=== PATIENT | male | born 1975 | race Caucasian/White ===

== ENCOUNTER 2019-10-23 10:52 | Day surgery (SDC) | payer BC ==
[~2019-10-23] VITALS: Ht 175.3 cm; Wt 113.4 kg
[2019-10-23] MEDS ORDERED: NEXIUM40 MG PO (11:12)
[2019-10-23] MEDS ORDERED: FLONASE ALLERG9.9 ML NAS (11:13)
--- NOTE | 2019-10-23 12:56 | NUR ---
10/23/19 1256 Sheets,Katharine 1249 PT ARRIVED TO PACU ON 3L VIA MASK, RESP EVEN AND UNLABORED. PLAN OF CARE DISCUSSED AND PT DENIES NAUSEA AND PAIN. PT FALLS EASILY BACK TO SLEEP. 1250 O2 TURNED OFF. 1254 PT ASLEEP AND O2 SAT DECREASED TO 88%, PT WAKES EASILY AND IS ENCOURAGED TO DEEP BREATHE, 02 2L NC TURNED ON. O2 AT INCREASED TO MID 90S.
--- NOTE | 2019-10-24 11:23 | OR ---
[facility] [address], [place] [address] Signed DATE OF OPERATION: 10/23/2019 SURGEON: Lisa Linder MD PREOPERATIVE DIAGNOSES: 1. Clinical gastroesophageal reflux symptoms. 2. History of laparoscopic Sherlyn fundoplication in 2003 (Dr. Albright) [place], [place]. POSTOPERATIVE DIAGNOSES: Slipped Sherlyn and chronic distal esophagitis. PROCEDURE: Esophagogastroduodenoscopy with biopsy. ANESTHESIA: Intravenous sedation, fentanyl 100 mcg and Versed 4 mg. INDICATION: This 44-year-old white man is a patient of Dr. Santino Downs. He underwent laparoscopic Sherlyn fundoplication in [place], [place] in [address] Adrian Albright, whom I know well. The patient did well for about 3 years, but then began having recurrent reflux symptoms. The patient has increased his weight over time, currently now weighing 250 pounds with a BMI of 37. He has been treated with PPI medication with some control of his symptoms. Consideration has been made for possible remedial surgery including Hill posterior gastropexy. He is admitted to undergo upper endoscopy to better characterize the problem and the recurrent anatomy. He understands the risks of bleeding, infection, and perforation, and wished to proceed. FINDINGS: Esophagus did have chronic distal esophagitis without evidence of Mera's epithelium. There was distorted anatomy of the GE junction, highly consistent with slipped Sherlyn fundoplication. There was no sign of gastric outlet obstruction in the stomach. The duodenum and stomach were otherwise normal. CLOtest was negative 20 minutes postprocedure. DESCRIPTION OF PROCEDURE: The patient was brought to the endoscopy suite, given topical Hurricaine spray hypopharyngeal anesthesia and placed in lateral decubitus position. He was given intravenous sedation to the point of slurred speech and nystagmus. Full cardiopulmonary Electronically Signed By: LISA LINDER MD 10/24/19 1123 PATIENT NAME: ZI BECERRIL OPERATIVE REPORT DATE OF : 73 REPORT #: [id number] PHYSICIAN: LISA LINDER MD PCP: SANTINO DOWNS MD REPORT IS CONFIDENTIAL AND NOT TO BE RELEASED WITHOUT AUTHORIZATION [facility] [address], [place] [address] Signed monitoring was undertaken. An Olympus video upper endoscope was passed in the hypopharynx. The vocal cords appeared normal as did the surrounding soft tissue. Scope was advanced to the esophagus without problem. Throughout its length, it looked normal except in the distal portion where there was chronic inflammatory change. No sign of ulceration, neoplasm, or varices. There was no Mera's epithelium either. The scope was advanced to the stomach, which was insufflated with air. Rugal folds appeared normal. There was no sign of persistent bile in the stomach. The pylorus was normal. Scope was passed through into the duodenum, which was normal. Biopsies were taken of the duodenum. The scope was withdrawn. Biopsies were taken of the antrum for both KATHARINE and pathologic testing. Retroflexed view was undertaken, showing a characteristic impression on the proximal stomach suggestive of the diaphragm with gastric mucosa above the diaphragm suggestive of possible slipped Sherlyn fundoplication anatomy. The scope was withdrawn into the proximal gastric pouch, which did show chronic inflammatory change and a small benign-appearing polyp. Biopsies were obtained there. The scope was withdrawn and biopsies were then taken of the distal esophageal mucosa. The esophagus was biopsied as well. There was no evidence of eosinophilic esophagitis. The scope was removed and the patient was taken to recovery room in good condition. CONCLUDING DIAGNOSES: Dysfunctional flap valve, most consistent with slipped Sherlyn fundoplication with recurrent symptoms of esophagitis and occasions of dysphagia. PLAN: We will set up for video esophagram to assess his motility and better characterize the anatomy. He may be a candidate for a Hill posterior gastropexy repair. Weight loss will be considered prior to operation as an adjunct to a more durable repair. MD PETE Kat/LARISAL /[id number] cc: [facility] [place], [place] Electronically Signed By: LISA LINDER MD 10/24/19 1123 PATIENT NAME: ZI BECERRIL OPERATIVE REPORT DATE OF : 73 REPORT #: [id number] PHYSICIAN: LISA LINDER MD PCP: SANTINO DOWNS MD REPORT IS CONFIDENTIAL AND NOT TO BE RELEASED WITHOUT AUTHORIZATION [address] [address] Signed Copies: SANTINO DOWNS MD ~ Electronically Signed By: LISA LINDER MD 10/24/19 1123 PATIENT NAME: JONEZI OPERATIVE REPORT DATE OF : 73 REPORT #: [id number] PHYSICIAN: LISA LINDER MD PCP: SANTINO DOWNS MD REPORT IS CONFIDENTIAL AND NOT TO BE RELEASED WITHOUT AUTHORIZATION
--- NOTE | 2019-10-27 15:13 | PATH ---
[facility] [address] [place], [place] [address] Signed SPECIMEN(S): A DUODENAL BIOPSY SPECIMEN(S): B ANTRUM/PYLORUS BIOPSY SPECIMEN(S): C PROXIMAL STOMACH BIOPSY SPECIMEN(S): D LOWER ESOPHAGEAL BIOPSY SPECIMEN(S): E MIDDLE ESOPHAGEAL BIOPSY SPECIMEN SOURCE: A. DUODENAL BIOPSY B. ANTRUM/PYLORUS BIOPSY C. PROXIMAL STOMACH BIOPSY D. LOWER ESOPHAGEAL BIOPSY E. MIDDLE ESOPHAGEAL BIOPSY CLINICAL HISTORY: Pre: GERD, history of fundoplication. Post: Slipped Dk fundoplication, esophagitis. MICROSCOPIC DESCRIPTION: A, B, C, and E. Histologic sections of all submitted blocks are examined by light microscopy. These findings, together with the gross examination, support the pathologic diagnosis. D. Sections reveal biopsies from lower esophageal area composed of both glandular and squamous mucosa. Glandular mucosa present is consistent with proximal gastric origin and is histologically bland. No goblet cells are seen. Squamous mucosa present has a prominent basal cell layer and elongated rete ridges. Small numbers of plasma cells and lymphocytes are present. No goblet cell metaplasia is seen. There is no evidence of malignancy or atypia. DANISA:mehran FINAL PATHOLOGIC DIAGNOSIS: A. Mucosa, duodenum, biopsy: - Duodenal mucosa with no microscopic pathologic diagnosis. B. Mucosa, antrum, biopsy: - No microscopic pathologic diagnosis. - Negative for the presence of bacteria morphologically consistent with Helicobacter on HE stained sections. C. Mucosa, proximal stomach, biopsy: - No microscopic pathologic diagnosis. - Negative for the presence of bacteria morphologically consistent with Helicobacter on HE stained sections. D. Mucosa, lower esophagus, biopsy: PATIENT NAME: ZI BECERRIL PATHOLOGY DATE OF : 73 REPORT #: [id number] PHYSICIAN: THONY ZABALA PCP: SANTINO MENJIVAR MD REPORT IS CONFIDENTIAL AND NOT TO BE RELEASED WITHOUT AUTHORIZATION [facility] [address] [place], [place] [address] Signed - Mild chronic esophagitis with features consistent with reflux. - Small fragments of proximal stomach with no histopathologic diagnosis. E. Mucosa, middle esophagus, biopsy: - Benign squamous esophageal mucosa with no histopathologic diagnosis. LJA:vlg:C2NR GROSS DESCRIPTION: Five specimens are received in five containers, labeled "TH." A. The specimen, labeled "TH, duodenal biopsy," is received in formalin and consists of one mandujano soft tissue fragment that measures 0.2 cm in greatest dimension. The specimen is entirely submitted in cassette (A1). B. The specimen, labeled "TH, antrum biopsy," is received in formalin and consists of one mandujano soft tissue fragment that measures 0.2 cm in greatest dimension. The specimen is entirely submitted in cassette (B1). C. The specimen, labeled "TH, proximal stomach biopsy," is received in formalin and consists of one mandujano soft tissue fragment that measures 0.2 cm in greatest dimension. The specimen is entirely submitted in cassette (C1). D. The specimen, labeled "TH, lower esophagus biopsy," is received in formalin and consists of four mandujano soft tissue fragments that measure 0.2 cm in greatest dimension. The specimen is entirely submitted in cassette (D1). E. The specimen, labeled "TH, middle esophagus biopsy," is received in formalin and consists of one mandujano soft tissue fragment that measures 0.2 cm in greatest dimension. The specimen is entirely submitted in cassette (E1). JS (under the direct supervision of a pathologist) The Gross Description was prepared using a voice recognition system. The report was reviewed for accuracy; however, sound-alike word errors, addition and/or deletions may occur. If there is any question about this report, please contact Client Services. PERFORMING LABORATORY: The technical component was performed by [email or web address] [address] (Chief Environmental Commitment Officer: Nancie Soria MD; CLIA# [id number]). Professional interpretation was performed by [facility], [address] [place], [place] [address] (CLIA# [id number]). PATIENT NAME: ZI BECERRIL PATHOLOGY DATE OF : 73 REPORT #: [id number] PHYSICIAN: THONY ZABALA PCP: SANTINO MENJIVAR MD REPORT IS CONFIDENTIAL AND NOT TO BE RELEASED WITHOUT AUTHORIZATION [facility] [address] [place], [place] [address] Signed Diagnostician: Fabian Clinton MD Pathologist Electronically Signed 10/27/2019 Copies: ~ PATIENT NAME: JONEZI PATHOLOGY DATE OF : 73 REPORT #: [id number] PHYSICIAN: THONY PATHOLOGY PCP: SANTINO MENJIVAR MD REPORT IS CONFIDENTIAL AND NOT TO BE RELEASED WITHOUT AUTHORIZATION
== END 2019-10-23 13:28 | disposition home or self-care (01) ==
LOC: DS 10:52 → OPS 10:52 → DS 12:00 → OPS 13:28
PROVIDERS: Surgery
PROC: 0DB78ZX Excision of Stomach, Pylorus, Via Natural or Artificial Opening Endoscopic, Diagnostic (ICD-10-PCS; 2019-10-23)
PROC: 0DB68ZX Excision of Stomach, Via Natural or Artificial Opening Endoscopic, Diagnostic (ICD-10-PCS; 2019-10-23)
PROC: 0DB28ZX Excision of Middle Esophagus, Via Natural or Artificial Opening Endoscopic, Diagnostic (ICD-10-PCS; 2019-10-23)
PROC: 0DB38ZX Excision of Lower Esophagus, Via Natural or Artificial Opening Endoscopic, Diagnostic (ICD-10-PCS; 2019-10-23)
PROC: 0DB98ZX Excision of Duodenum, Via Natural or Artificial Opening Endoscopic, Diagnostic (ICD-10-PCS; principal; 2019-10-23 12:00)
DX: K21.0 Gastro-esophageal reflux disease with esophagitis (principal); K95.09 Other complications of gastric band procedure; G47.30 Sleep apnea, unspecified; E66.9 Obesity, unspecified; Z88.0 Allergy status to penicillin; Z98.890 Other specified postprocedural states; Z68.36 Body mass index [BMI] 36.0-36.9, adult
CPT/HCPCS: 99153; G0500; J2250; J3010; J7121